=== PATIENT | female | born 1945 | race Caucasian/White ===

== ENCOUNTER 2019-08-13 11:14 | Emergency (ER) | payer OTHER ==
[~2019-08-13] VITALS: Ht 152.4 cm; Wt 55.3 kg
[~2019-08-13 11:14] MED LIST: NORFLEX100 MG; PRILOSEC10 MG
[2019-08-13] MEDS ORDERED: ZOLOFT50 MG (11:35)
[2019-08-13] MEDS ORDERED: SINGULAIR10 MG (11:35)
[2019-08-13] MEDS ORDERED: METOPROLOL SUCC25 MG (11:35)
[2019-08-13] MEDS ORDERED: CLONAZEPAM1 MG (11:35)
== END 2019-08-13 14:28 | disposition home or self-care (01) ==
LOC: ER 11:14
DX: N30.81 Other cystitis with hematuria (principal)

== ENCOUNTER 2024-01-05 14:37 | Emergency (ER) | payer OTHER ==
[~2024-01-05] VITALS: Ht 152.4 cm; Wt 54.4 kg
[~2024-01-05 14:37] MED LIST changes: +CLONAZEPAM1 MG; +METOPROLOL SUCC25 MG; +SINGULAIR10 MG; +ZOLOFT50 MG
[2024-01-05] MEDS ORDERED: ESCITALOPRAM OX20 MG PO (15:37)
[2024-01-05] MEDS ORDERED: ARICEPT5 MG (15:40)
[2024-01-05] MEDS ORDERED: ZOCOR20 MG (15:40)
[2024-01-05] MEDS ORDERED: DEXAMETHASONE SODIUM PHOSPHATE 4 MG/ML VIAL IM STA (17:27)
[2024-01-05] MEDS ORDERED: KETOROLAC TROMETHAMINE 30 MG VIAL IM ONE (17:30)
== END 2024-01-05 19:44 | disposition home or self-care (01) ==
LOC: ER 14:37
DX: S40.011A Contusion of right shoulder, initial encounter (principal); S30.0XXA Contusion of lower back and pelvis, initial encounter; V49.9XXA Car occupant (driver) (passenger) injured in unspecified traffic accident, initial encounter; Y93.89 Activity, other specified; Y92.413 State road as the place of occurrence of the external cause; Y99.9 Unspecified external cause status; M51.36 Other intervertebral disc degeneration, lumbar region; Z88.8 Allergy status to other drugs, medicaments and biological substances
CPT/HCPCS: 72110; 73030; 96372; 99284; J1100; J1885